=== PATIENT | female | born 1935 | race Caucasian/White ===

== ENCOUNTER 2016-11-11 03:53 | Inpatient (IN) | payer OTHER, MEDICARE ==
[~2016-11-11] VITALS: Ht 165.1 cm; Wt 85.3 kg
[~2016-11-11 03:53] MED LIST: CALCIUM500 M4 PO; DAILY VALUE1 EACH PO; DICYCLOMINE HCL10 MG PO; DILAUDID2 MG PO; FISH OIL300 MG PO; FLAX OIL1000 MG PO; FLONASE16 G1 BOTH NARES; GLIMEPIRIDE2 MG PO; LOSARTAN POTASS50 MG PO; LYRICA75 MG PO; MECLIZINE HCL25 MG PO; METFORMIN HCL500 MG PO; PAXIL10 MG PO; PROTONIX40 MG PO; TIMOPTIC-0100 DROP/1 RIGHT EYE; VITAMIN D2000 INTUN PO; ZITHROMAX Z-PA250 MG PO; ZOFRAN ODT4 MG PO
[2016-11-11 04:57] LABS: CHLORIDE 108 mEq/L (99-109); POTASSIUM 3.9 mEq/L (3.7-5.4); SODIUM 142 mEq/L (136-147)
[2016-11-11 05:00] LABS: GLUCOSE 145 mg/dL (70-99)
[2016-11-11 05:01] LABS: ANION GAP 10 MEQ/L (2-14)
[2016-11-11 05:02] LABS: TOTAL BILIRUBIN 0.3 mg/dL (0.0-1.0)
[2016-11-11 05:03] LABS: ALKALINE PHOSPHATASE 43 IU/L (3-129); GFR ESTIMATE (CALCULATED) 56 mL/min/
[2016-11-11 05:04] LABS: UREA NITROGEN (BUN) 15 mg/dL (9-23)
[2016-11-11 05:07] LABS: LIPASE 51 U/L (1.0-51.0)
[2016-11-11 05:31] LABS: HEMATOCRIT 38.5 % (36.0-46.0); MCH 29.2 PG (29.0-34.0); MCHC 32.7 G/DL (30.0-36.0); MCV 89.1 FL (83-99); MEAN PLAT.VOLUME 10.2 uM^3 (9.5-12.4); PLATELET COUNT 197 K/uL (156-360); RBC DIS.WIDTH-CV 12.8 % (11.8-14.6); RED BLOOD COUNT 4.32 M/uL (3.80-5.20); WHITE BLOOD COUNT 7.4 K/uL (4.1-10.2)
[2016-11-11 05:55] LABS: ADD MIUA? YES; BILIRUBIN NEGATIVE; BLOOD MODERATE; COLOR STRAW ((YELLOW)); GLUCOSE (STRIP) NEGATIVE; KETONES NEGATIVE; LEUKOCYTES NEGATIVE; NITRITE NEGATIVE; PROTEIN (STRIP) NEGATIVE; SPECIFIC GRAVITY 1.013 (1.000-1.030); UROBILINOGEN 0.2 MG/DL (0.2-1.0)
[2016-11-11 06:00] LABS: BACTERIA RARE /HPF; EPITHELIAL CELLS RARE /HPF; MUCUS NONE SEEN /LPF; RED BLOOD CELLS 40-50 /HPF (0-5); UCUL ADDED? NO; WHITE BLOOD CELLS 0-5 /HPF (0-5)
[2016-11-11 10:15] VITALS: BP 176/71
[2016-11-11 15:39] VITALS: BP 160/93
[2016-11-11] MEDS ORDERED: VITAMIN D2000 UNIT PO (16:13)
[2016-11-11] MEDS ORDERED: PRAVASTATIN SOD20 MG PO (16:16)
[2016-11-11] MEDS ORDERED: GABAPENTIN300 MG PO (16:16)
[2016-11-11 17:05] LABS: POINT-OF-CARE METER ID UU14162508
[2016-11-11 18:53] VITALS: BP 141/65
[2016-11-11 21:56] LABS: POINT-OF-CARE METER ID UU14162508
[2016-11-11 23:30] VITALS: BP 129/60
[2016-11-12] VITALS (7 sets, daily range): BP systolic 100–143; BP diastolic 58–81
[2016-11-12 06:26] LABS: POINT-OF-CARE METER ID UU14162508
[2016-11-12 06:59] LABS: EOSINOPHIL (%) 4.3 % (0-5); EOSINOPHIL COUNT 0.3 K/uL (0-0.3); HEMATOCRIT 38.1 % (36.0-46.0); IMMATURE GRANULOCYTE (%) 0.3 % (0.0-0.7); INSTRUMENT ABS NEUTROPHIL CT 3.7 K/uL; MCH 29.2 PG (29.0-34.0); MCHC 32.8 G/DL (30.0-36.0); MONOCYTE (%) 6.8 % (3-12); MONOCYTE COUNT 0.4 K/uL (0-0.8); NEUTROPHIL (%) 56.5 % (45-76); NEUTROPHIL COUNT 3.7 K/uL (1.8-6.4); PLATELET COUNT 218 K/uL (156-360); RBC DIS.WIDTH-CV 13.1 % (11.8-14.6); RBC DIS.WIDTH-SD 42.5 % (39-53); RED BLOOD COUNT 4.28 M/uL (3.80-5.20); WHITE BLOOD COUNT 6.5 K/uL (4.1-10.2)
[2016-11-12 07:34] LABS: ANION GAP 10 MEQ/L (2-14); CHLORIDE 107 MEQ/L (99-109); GFR ESTIMATE (CALCULATED) > 59 mL/min/; GLUCOSE 137 mg/dL (70-99); POTASSIUM 4.2 MEQ/L (3.7-5.4); SAMPLE HEMOLYSIS CHECK 0; SAMPLE ICTERIC CHECK 0; SAMPLE LIPEMIA CHECK 0; SODIUM 141 MEQ/L (136-147); UREA NITROGEN (BUN) 13 mg/dL (9-23)
[2016-11-12 11:44] LABS: POINT-OF-CARE METER ID UU14162508
[2016-11-12 16:10] LABS: POINT-OF-CARE METER ID UU14162508
[2016-11-12 21:50] LABS: POINT-OF-CARE METER ID UU14162508
[2016-11-13 03:21] VITALS: BP 144/63
[2016-11-13 07:40] VITALS: BP 168/70
[2016-11-13 08:18] LABS: GFR ESTIMATE (CALCULATED) > 59 mL/min/; UREA NITROGEN (BUN) 13 mg/dL (9-23)
[2016-11-13 11:45] VITALS: BP 137/73
[2016-11-13 12:20] LABS: POINT-OF-CARE METER ID UU14162508
[2016-11-13 16:10] VITALS: BP 185/78
[2016-11-13] MEDS ORDERED: POLYETHYLENE GL17 GM PO (17:01)
[2016-11-13] MEDS ORDERED: CEFUROXIME250 MG PO (17:01)
== END 2016-11-13 18:13 | disposition home or self-care (01) | DRG 690 ==
LOC: EME → EDBD 03:53 → EDOF 07:43 → 2EAST 07:43 → EDOF 07:43 → 2EAST 10:12
PROVIDERS: Emergency Medicine; Hospitalist; Internal Medicine
DX: N13.6 Pyonephrosis (principal); K58.9 Irritable bowel syndrome, unspecified; E11.40 Type 2 diabetes mellitus with diabetic neuropathy, unspecified; I10 Essential (primary) hypertension; N13.2 Hydronephrosis with renal and ureteral calculous obstruction; Z90.13 Acquired absence of bilateral breasts and nipples; Z85.3 Personal history of malignant neoplasm of breast; E87.2 Acidosis
CPT/HCPCS: 74177; 80048; 80053; 81003; 82565; 82948; 83605; 83690; 84520; 85025; 85027; 87086; 99281; 99285; G0378; J0696; J1815; J2405; J3010; J7030; J7050

== ENCOUNTER → 2017-02-06 | Outpatient (CLI) | payer MEDICARE ==
[~2017-02-06] MED LIST changes: +CEFUROXIME250 MG PO; +GABAPENTIN300 MG PO; +PERCOCET 5/31 TABLET PO; +POLYETHYLENE GL17 GM PO; +PRAVASTATIN SOD20 MG PO; +VITAMIN D2000 UNIT PO
== END | disposition home or self-care (01) ==
LOC: CDC 15:24
DX: I45.10 Unspecified right bundle-branch block (principal)
CPT/HCPCS: 93000

== ENCOUNTER 2017-02-08 23:47 | Emergency (ER) | payer OTHER, MEDICARE ==
[~2017-02-08] VITALS: Ht 160 cm; Wt 85.0 kg
[~2017-02-08 23:47] MED LIST changes: -PERCOCET 5/31 TABLET PO
[2017-02-09 00:40] LABS: EOSINOPHIL (%) 2.7 % (0-5); EOSINOPHIL COUNT 0.2 K/uL (0-0.3); HEMATOCRIT 34.4 % (36.0-46.0); INSTRUMENT ABS NEUTROPHIL CT 3.7 K/uL; LYMPHOCYTE COUNT 1.5 K/uL (1.0-2.8); MCH 28.8 PG (29.0-34.0); MCHC 33.1 G/DL (30.0-36.0); MCV 86.9 FL (83-99); MEAN PLAT.VOLUME 9.6 uM^3 (9.5-12.4); MONOCYTE (%) 8.3 % (3-12); MONOCYTE COUNT 0.5 K/uL (0-0.8); NEUTROPHIL COUNT 3.7 K/uL (1.8-6.4); RBC DIS.WIDTH-SD 41.2 % (39-53); RED BLOOD COUNT 3.96 M/uL (3.80-5.20); WHITE BLOOD COUNT 5.9 K/uL (4.1-10.2)
[2017-02-09 00:41] LABS: PLATELET COUNT 224 K/uL (156-360)
[2017-02-09 00:52] LABS: CHLORIDE 106 mEq/L (99-109); POTASSIUM 3.7 mEq/L (3.7-5.4); SODIUM 140 mEq/L (136-147)
[2017-02-09 00:53] LABS: GLUCOSE 122 mg/dL (70-99)
[2017-02-09 00:55] LABS: ANION GAP 10 MEQ/L (2-14)
[2017-02-09 00:57] LABS: GFR ESTIMATE (CALCULATED) > 59 mL/min/
[2017-02-09 00:58] LABS: UREA NITROGEN (BUN) 14 mg/dL (9-23)
[2017-02-09 01:52] LABS: ADD MIUA? YES; BILIRUBIN NEGATIVE; BLOOD LARGE; COLOR YELLOW ((YELLOW)); GLUCOSE (STRIP) NEGATIVE; KETONES NEGATIVE; LEUKOCYTES NEGATIVE; NITRITE NEGATIVE; PROTEIN (STRIP) 30; SPECIFIC GRAVITY 1.006 (1.000-1.030); UROBILINOGEN 0.2 MG/DL (0.2-1.0)
[2017-02-09 01:55] LABS: INTERNAL CONTROL VALID? YES
[2017-02-09 01:58] LABS: BACTERIA RARE /HPF; EPITHELIAL CELLS RARE /HPF; MUCUS NONE SEEN /LPF; RED BLOOD CELLS TNTC /HPF (0-5); UCUL ADDED? YES; WHITE BLOOD CELLS 0-5 /HPF (0-5)
[2017-02-09] MEDS ORDERED: PERCOCET 5/31 TABLET PO (03:01)
[2017-02-09 03:19] LABS: POINT-OF-CARE METER ID UU13113702
[2017-02-09 03:41] VITALS: BP 155/82
== END 2017-02-09 03:42 | disposition home or self-care (01) ==
LOC: EME → EDBD 23:47 → EME 23:47
PROVIDERS: Emergency Medicine
DX: N13.2 Hydronephrosis with renal and ureteral calculous obstruction (principal); R30.0 Dysuria; Z98.890 Other specified postprocedural states; I10 Essential (primary) hypertension; E11.9 Type 2 diabetes mellitus without complications; Z79.84 Long term (current) use of oral hypoglycemic drugs; Z85.3 Personal history of malignant neoplasm of breast; Z90.13 Acquired absence of bilateral breasts and nipples; Z90.49 Acquired absence of other specified parts of digestive tract; Z90.710 Acquired absence of both cervix and uterus
CPT/HCPCS: 74176; 80048; 81003; 82948; 84703; 85025; 87086; 99281; 99285; J1885; J2405; J3010; J7030

== ENCOUNTER 2017-02-15 17:09 | Emergency (ER) | payer OTHER, MEDICARE ==
[~2017-02-15] VITALS: Ht 160 cm; Wt 78.2 kg
[~2017-02-15 17:09] MED LIST changes: +PERCOCET 5/31 TABLET PO
[2017-02-15 18:19] LABS: HEMATOCRIT 35.9 % (36.0-46.0); MCV 90.7 FL (83-99); MEAN PLAT.VOLUME 9.5 uM^3 (9.5-12.4); PLATELET COUNT 256 K/uL (156-360); RBC DIS.WIDTH-CV 13.1 % (11.8-14.6); RED BLOOD COUNT 3.96 M/uL (3.80-5.20); WHITE BLOOD COUNT 7.2 K/uL (4.1-10.2)
[2017-02-15 18:31] LABS: CHLORIDE 106 mEq/L (99-109); SODIUM 144 mEq/L (136-147)
[2017-02-15 18:32] LABS: GLUCOSE 135 mg/dL (70-99)
[2017-02-15 18:34] LABS: ANION GAP 11 MEQ/L (2-14)
[2017-02-15 18:35] LABS: POTASSIUM 4.7 mEq/L (3.7-5.4)
[2017-02-15 18:36] LABS: GFR ESTIMATE (CALCULATED) > 59 mL/min/
[2017-02-15 18:37] LABS: UREA NITROGEN (BUN) 16 mg/dL (9-23)
[2017-02-15 20:18] VITALS: BP 131/90
== END 2017-02-15 20:31 | disposition home or self-care (01) ==
LOC: EME → EDBD 17:09 → EME 20:31
DX: N20.2 Calculus of kidney with calculus of ureter (principal); Z98.890 Other specified postprocedural states; E11.9 Type 2 diabetes mellitus without complications; I10 Essential (primary) hypertension; Z85.3 Personal history of malignant neoplasm of breast; Z87.442 Personal history of urinary calculi; Z79.84 Long term (current) use of oral hypoglycemic drugs
CPT/HCPCS: 80048; 81003; 85027; 99281; 99284; J2405; J3010

== ENCOUNTER 2017-02-22 13:50 | Day surgery (SDC) | payer OTHER, MEDICARE ==
[~2017-02-22] VITALS: Ht 160 cm; Wt 78.0 kg
[2017-02-22 14:03] VITALS: BP 186/94
[2017-02-22 14:29] LABS: POINT-OF-CARE METER ID UU13113819
[2017-02-22 16:16] LABS: POINT-OF-CARE METER ID UU13113675
[2017-02-22 17:23] VITALS: BP 126/64
[2017-02-22 18:20] VITALS: BP 127/60
== END 2017-02-22 18:40 | disposition home or self-care (01) ==
LOC: SDC 13:50
PROVIDERS: Urology
DX: N20.1 Calculus of ureter (principal); Z87.440 Personal history of urinary (tract) infections; Z87.442 Personal history of urinary calculi; I10 Essential (primary) hypertension; E11.9 Type 2 diabetes mellitus without complications; K58.9 Irritable bowel syndrome, unspecified; G25.81 Restless legs syndrome; E78.5 Hyperlipidemia, unspecified; Z85.3 Personal history of malignant neoplasm of breast; Z85.820 Personal history of malignant melanoma of skin; Z79.82 Long term (current) use of aspirin; M19.90 Unspecified osteoarthritis, unspecified site; F41.9 Anxiety disorder, unspecified; H40.9 Unspecified glaucoma; K21.9 Gastro-esophageal reflux disease without esophagitis
CPT/HCPCS: 74420; 82365 90; 82948; C1876; J0690; J1100; J2405; J3010; J7050; Q0175

== ENCOUNTER 2018-01-18 13:28 | Emergency (ER) | payer OTHER, MEDICARE ==
[~2018-01-18] VITALS: Ht 157.5 cm; Wt 81.8 kg
[2018-01-18] MEDS ORDERED: LEVAQUIN750 MG PO (15:54)
[2018-01-18] MEDS ORDERED: ZOFRAN ODT4 MG PO (15:54)
[2018-01-18] MEDS ORDERED: ANTIVERT25 MG PO (15:54)
[2018-01-18 16:10] VITALS: BP 118/65
== END 2018-01-18 16:10 | disposition home or self-care (01) ==
LOC: RME 13:28 → EME 13:28 → RME 16:10
DX: J32.9 Chronic sinusitis, unspecified (principal); R42 Dizziness and giddiness; H92.03 Otalgia, bilateral; R53.81 Other malaise; R11.2 Nausea with vomiting, unspecified; R51 Headache; R06.02 Shortness of breath; I10 Essential (primary) hypertension; E11.9 Type 2 diabetes mellitus without complications; Z79.84 Long term (current) use of oral hypoglycemic drugs; Z85.3 Personal history of malignant neoplasm of breast; Z90.13 Acquired absence of bilateral breasts and nipples; Z90.710 Acquired absence of both cervix and uterus; Z90.49 Acquired absence of other specified parts of digestive tract
CPT/HCPCS: 70450; 99281; 99284